=== PATIENT | female | born 1970 | race Caucasian/White ===

== ENCOUNTER → 2020-10-08 | Day surgery (SDC) | payer BC ==
[~2020-10-08] MED LIST: AMBIEN CR12.5 MG PO; AMITRIPTYLINE H10 MG PO; ANALPRAM HC 2.530 GM TD; ANUCORT-HC25 MG PR; BUSPAR 5MG TABLE5 MG PO; COLACE 100MG C100 MG PO; COLACE100 MG PO; CYCLOBENZAPRINE10 MG PO; CYMBALTA60 MG PO; DESYREL 50 MG T50 MG PO; FLEXERIL 10 MG10 MG PO; HYDROCODON-ACE1 EAC6 PO; LYRICA300 MG PO; METOPROLOL SUCC25 MG PO; NASONEX17 GM; NORCO 10-325 T1 EACH PO; PERCOCET 10-321 EACH PO; PERCOCET 5/325 T1 EA PO; PROMETHAZINE12.5 M1 PO; RIZATRIPTAN5 MG PO; SENNA8.6 MG PO; SYNTHROID100 MCG PO; TRETIN X TP; TRETINOIN TD; ULTRAM50 MG PO; ZANTAC150 MG PO; ZYRTEC10 MG PO
== END | disposition home or self-care (01) ==
LOC: OR 06:19
PROVIDERS: Surgery
PROC: 06BY3ZC Excision of Hemorrhoidal Plexus, Percutaneous Approach (ICD-10-PCS; principal; 2020-10-08 07:30)
DX: K64.5 Perianal venous thrombosis (principal); K64.8 Other hemorrhoids; J45.909 Unspecified asthma, uncomplicated; I10 Essential (primary) hypertension; F41.8 Other specified anxiety disorders; M79.7 Fibromyalgia; K21.9 Gastro-esophageal reflux disease without esophagitis; G43.909 Migraine, unspecified, not intractable, without status migrainosus; M06.9 Rheumatoid arthritis, unspecified; E66.01 Morbid (severe) obesity due to excess calories; Z68.32 Body mass index [BMI] 32.0-32.9, adult; Z91.040 Latex allergy status; Z79.899 Other long term (current) drug therapy
CPT/HCPCS: 84703; J0690; J1100; J1170; J1885; J2250; J2405; J2704; J3010; J7030; J7120

== ENCOUNTER → 2020-11-26 | Day surgery (SDC) | payer BC | END | disposition home or self-care (01) | LOC: OR 07:27 | PROVIDERS: Surgery | PROC: 06BY0ZC Excision of Hemorrhoidal Plexus, Open Approach (ICD-10-PCS; principal; 2020-11-26 09:00) | DX: K64.4 Residual hemorrhoidal skin tags (principal); K64.8 Other hemorrhoids; J45.909 Unspecified asthma, uncomplicated; I10 Essential (primary) hypertension; K21.9 Gastro-esophageal reflux disease without esophagitis; F41.9 Anxiety disorder, unspecified; F32.9 Major depressive disorder, single episode, unspecified; M79.7 Fibromyalgia; G47.00 Insomnia, unspecified; M54.5 Low back pain; G43.909 Migraine, unspecified, not intractable, without status migrainosus; G89.4 Chronic pain syndrome; M06.9 Rheumatoid arthritis, unspecified; E66.9 Obesity, unspecified; Z68.25 Body mass index [BMI] 25.0-25.9, adult; Z88.8 Allergy status to other drugs, medicaments and biological substances; Z91.040 Latex allergy status; Z79.51 Long term (current) use of inhaled steroids; Z79.891 Long term (current) use of opiate analgesic; Z79.899 Other long term (current) drug therapy | CPT/HCPCS: 84703; J1100; J2001; J2250; J2405; J2704; J2795; J3010; J7030; J7120 ==